=== PATIENT | male | born 1970 | race American Indian/Alaskan Native ===

== ENCOUNTER 2016-10-26 10:17 | Outpatient (CLI) | payer MEDICAID ==
[2016-10-26] MEDS ORDERED: XYLOCAINE TOPICAL 4% TP ONE ×4 (11:52→18:00)
[2016-10-26] MEDS ORDERED: SANTYL TP ONE (13:13)
[2016-10-26] MEDS ORDERED: SANTYL TP PRN (13:57)
== END 2016-10-26 10:18 | disposition home or self-care (01) ==
LOC: WOUND 10:17
PROVIDERS: ATTEND Podiatrist
DX: L97.322 Non-pressure chronic ulcer of left ankle with fat layer exposed (principal); L97.312 Non-pressure chronic ulcer of right ankle with fat layer exposed; L97.512 Non-pressure chronic ulcer of other part of right foot with fat layer exposed; G60.9 Hereditary and idiopathic neuropathy, unspecified; F17.210 Nicotine dependence, cigarettes, uncomplicated
CPT/HCPCS: 11042; 87075; 87116; 97597; G0463

== ENCOUNTER 2016-11-01 10:02 | Outpatient (CLI) | payer MEDICAID ==
[2016-11-01] MEDS ORDERED: XYLOCAINE TOPICAL 4% TP ONE ×3 (10:30→12:00)
[2016-11-02] MEDS ORDERED: AD OINTMENT TP SCH (10:00)
== END 2016-11-01 10:03 | disposition home or self-care (01) ==
LOC: WOUND 10:02
PROVIDERS: ATTEND Internal Medicine
DX: L89.324 Pressure ulcer of left buttock, stage 4 (principal); L97.322 Non-pressure chronic ulcer of left ankle with fat layer exposed; L97.312 Non-pressure chronic ulcer of right ankle with fat layer exposed; L97.512 Non-pressure chronic ulcer of other part of right foot with fat layer exposed; G60.9 Hereditary and idiopathic neuropathy, unspecified; I10 Essential (primary) hypertension
CPT/HCPCS: 97605

== ENCOUNTER 2016-11-08 11:11 | Outpatient (CLI) | payer MEDICAID ==
[2016-11-08] MEDS ORDERED: XYLOCAINE TOPICAL 2% TP ONE ×2 (11:19→15:33)
== END 2016-11-08 11:12 | disposition home or self-care (01) ==
LOC: WOUND 11:11
PROVIDERS: ATTEND Internal Medicine
DX: L97.322 Non-pressure chronic ulcer of left ankle with fat layer exposed (principal); L97.312 Non-pressure chronic ulcer of right ankle with fat layer exposed; L97.512 Non-pressure chronic ulcer of other part of right foot with fat layer exposed; G60.9 Hereditary and idiopathic neuropathy, unspecified; I10 Essential (primary) hypertension; G99.0 Autonomic neuropathy in diseases classified elsewhere; L89.324 Pressure ulcer of left buttock, stage 4; F17.210 Nicotine dependence, cigarettes, uncomplicated; Z72.89 Other problems related to lifestyle
CPT/HCPCS: 97605

== ENCOUNTER 2016-11-15 11:02 | Outpatient (CLI) | payer MEDICAID ==
[2016-11-15] MEDS ORDERED: XYLOCAINE TOPICAL 2% TP ONE ×2 (11:43→12:25)
[2016-11-15] MEDS ORDERED: XYLOCAINE TOPICAL 2% ONE (11:43)
== END 2016-11-15 11:03 | disposition home or self-care (01) ==
LOC: WOUND 11:02
PROVIDERS: ATTEND Internal Medicine
DX: L97.322 Non-pressure chronic ulcer of left ankle with fat layer exposed (principal); L97.412 Non-pressure chronic ulcer of right heel and midfoot with fat layer exposed; L97.512 Non-pressure chronic ulcer of other part of right foot with fat layer exposed; L89.324 Pressure ulcer of left buttock, stage 4; I10 Essential (primary) hypertension; G62.9 Polyneuropathy, unspecified; F17.210 Nicotine dependence, cigarettes, uncomplicated
CPT/HCPCS: 97605

== ENCOUNTER 2016-12-15 09:29 | Outpatient (CLI) | payer MEDICAID ==
[2016-12-15] MEDS ORDERED: XYLOCAINE TOPICAL 4% TP ONE (09:40)
== END 2016-12-15 09:30 | disposition home or self-care (01) ==
LOC: WOUND 09:29
PROVIDERS: ATTEND Internal Medicine
DX: L97.322 Non-pressure chronic ulcer of left ankle with fat layer exposed (principal); L97.312 Non-pressure chronic ulcer of right ankle with fat layer exposed; L97.512 Non-pressure chronic ulcer of other part of right foot with fat layer exposed; L89.324 Pressure ulcer of left buttock, stage 4; I10 Essential (primary) hypertension; G60.9 Hereditary and idiopathic neuropathy, unspecified; G99.0 Autonomic neuropathy in diseases classified elsewhere; F17.210 Nicotine dependence, cigarettes, uncomplicated; Z72.89 Other problems related to lifestyle